=== PATIENT | female | born 1985 | race African-American/Black ===

== ENCOUNTER 2019-12-08 13:12 | Emergency (ER) | payer BC ==
[~2019-12-08] VITALS: Ht 165.1 cm; Wt 127.0 kg
[2019-12-08] MEDS ORDERED: CORTISPORIN OTI10 M2 OTIC (13:38)
[2019-12-08] MEDS ORDERED: APAP W/CODEINE1 TA2 PO (13:38)
[2019-12-08] MEDS ORDERED: KEFLEX500 M1 PO (13:39)
[2019-12-08 13:45] VITALS: BP 114/90
== END 2019-12-08 13:45 | disposition home or self-care (01) ==
LOC: M.ERS 13:12
DX: H60.91 Unspecified otitis externa, right ear (principal)

== ENCOUNTER 2019-12-10 19:19 | Emergency (ER) | payer BC ==
[~2019-12-10] VITALS: Ht 167.6 cm; Wt 145.2 kg
[~2019-12-10 19:19] MED LIST: APAP W/CODEINE1 TA2 PO; CORTISPORIN OTI10 M2 OTIC; KEFLEX500 M1 PO
[2019-12-10] MEDS ORDERED: CIPRO500 M1 PO (22:18)
[2019-12-10 22:30] VITALS: BP 148/88
== END 2019-12-10 22:30 | disposition home or self-care (01) ==
LOC: M.ERS 19:19
DX: H66.92 Otitis media, unspecified, left ear (principal); H60.92 Unspecified otitis externa, left ear